=== PATIENT | female | born 1940 ===

== ENCOUNTER 2018-02-17 23:16 | Inpatient (IN) ==
[2018-02-18] MEDS ORDERED: ACETAMINOPHEN 325 MG TABLET PO PRN (02:24)
[2018-02-18] MEDS ORDERED: GLUCAGON 1 MG VIAL IM PRN (02:24)
[2018-02-18] MEDS ORDERED: ONDANSETRON 4 MG/2 ML VIAL IV PRN (02:24)
[2018-02-18] MEDS ORDERED: DEXTROSE 50% 25 GM/50 ML VIAL IV PRN (02:24)
[2018-02-18] MEDS ORDERED: cloNIDine 0.1 MG TABLET PO PRN (02:37)
[2018-02-18] MEDS ORDERED: cloNIDine 0.1 MG TABLET PO ONE (03:00)
[2018-02-18 03:10] LABS: Basophils % 0.5 % (0.0-0.8); Eosinophils % 0.2 % (0.00-10.9); Hematocrit 34.4 VOL% (35.7-47.0); Hemoglobin 11.4 GM/DL (12.0-16.0); Immature Granulocytes % 0.2 %; Immature Granulocytes Absolute 0.01 #; Lymphocytes # 1.5 10*3/uL (1.4-4.0); Lymphocytes % 34.9 % (21.3-54.2); Mean Corpuscular HGB Conc 33.1 GM/DL (32-36); Mean Corpuscular Hemoglobin 31 PG (27-34); Mean Corpuscular Volume 93.5 FL (87-102); Mean Platelet Volume 9.9 FL (9.6-12.0); Monocytes # 0.4 10*3/uL (0.11-0.8); Monocytes % 9.9 % (1.7-12.7); Neutrophils # 2.3 10*3/uL (1.4-7.4); Neutrophils % 54.3 % (38.7-73.9); Platelet Count 147 T/CUMM (130-400); Red Blood Count 3.68 MC/CUMM (3.8-5.5); Red Cell Distribution Width 13.9 % (9.3-17.3); White Blood Count 4.2 T/CUMM (4-12)
[2018-02-18 03:49] LABS: Albumin 3.8 G/DL (3.4-5.0); Bilirubin,Total 0.5 MG/DL (0.2-1.0); Calcium 8.7 MG/DL (8.5-10.1); Osmolality,Calculated 287.8 MOS/KG (273-304); Risk Ratio 2.72; Thyroid Stimulating Hormone 6.62 uIU/ml (0.358-3.74); Total Protein 7.5 G/DL (6.4-8.3)
[2018-02-18] MEDS: SODIUM CHLORIDE 0.9% 1,000 ML IV SCH ×2 (04:43→21:20)
[2018-02-18] MEDS: FLUTICASONE 50 MCG NASAL SPRAY 16 GM BOTTLE BOTH NARES SCH (09:15)
[2018-02-18] MEDS: DONEPEZIL 10 MG TABLET PO SCH ×2 (09:16→20:41)
[2018-02-18] MEDS: MEMANTINE 10 MG TABLET PO SCH ×2 (09:16→20:41)
[2018-02-18] MEDS: ASPIRIN EC 81 MG TABLET PO SCH (09:16)
[2018-02-18] MEDS: MULTIVITAMIN (CENTRUM) TABLET PO SCH (09:16)
[2018-02-18] MEDS: ENOXAPARIN 40 MG/0.4 ML SYRINGE SUBCUT SCH (09:17)
[2018-02-18] MEDS: INSULIN LISPRO 100 UNIT/ML SUBCUT SCH ×4 (09:17→20:59)
[2018-02-18] MEDS ORDERED: QUEtiapine 25 MG TABLET PO SCH (21:00)
[2018-02-19 05:19] LABS: Calcium 8.3 MG/DL (8.5-10.1); Osmolality,Calculated 291.6 MOS/KG (273-304)
[2018-02-19] MEDS: SODIUM CHLORIDE 0.9% 1,000 ML IV SCH ×2 (08:24→10:31)
[2018-02-19] MEDS: INSULIN LISPRO 100 UNIT/ML SUBCUT SCH ×2 (08:32→11:41)
[2018-02-19] MEDS: DONEPEZIL 10 MG TABLET PO SCH (09:03)
[2018-02-19] MEDS: MULTIVITAMIN (CENTRUM) TABLET PO SCH (09:03)
[2018-02-19] MEDS: MEMANTINE 10 MG TABLET PO SCH (09:03)
[2018-02-19] MEDS: FLUTICASONE 50 MCG NASAL SPRAY 16 GM BOTTLE BOTH NARES SCH (09:03)
[2018-02-19] MEDS: ASPIRIN EC 81 MG TABLET PO SCH (09:03)
[2018-02-19] MEDS: ENOXAPARIN 40 MG/0.4 ML SYRINGE SUBCUT SCH (09:04)
[2018-02-19 12:04] VITALS: BP 158/73
== END 2018-02-19 14:14 | disposition home or self-care (01) | DRG 57 ==
LOC: N.TELEN → SUATTDRO 02-18 00:41
PROVIDERS: ADMIT Internal Medicine

== ENCOUNTER 2018-11-04 12:08 | Inpatient (IN) ==
[2018-11-04] MEDS ORDERED: diphenhydrAMINE CAP 25 MG CAPSULE PO PRN (14:07)
[2018-11-04] MEDS ORDERED: traZODone 50 MG TABLET PO PRN (14:07)
[2018-11-04] MEDS ORDERED: BISACODYL 5 MG TABLET PO PRN (14:07)
[2018-11-04] MEDS ORDERED: guaiFENesin/DM ER 600-30 MG TABLET PO PRN (14:07)
[2018-11-04] MEDS ORDERED: ACETAMINOPHEN 325 MG TABLET PO PRN (14:07)
[2018-11-04] MEDS ORDERED: ONDANSETRON 4 MG/2 ML VIAL IV PRN (14:07)
[2018-11-04] MEDS ORDERED: MORPHINE 4 MG/1 ML VIAL IV PRN (14:07)
[2018-11-04] MEDS ORDERED: DOCUSATE SODIUM 100 MG CAPSULE PO PRN (14:07)
[2018-11-04] MEDS ORDERED: LACTULOSE 20 GM/30 ML UDCUP PO PRN (14:07)
[2018-11-04 15:02] LABS: Basophils # 0.1 10*3/uL (0.0-0.2); Basophils % 0.2 % (0.0-0.8); Hemoglobin 11.3 GM/DL (12.0-16.0); Immature Granulocytes % 1.5 %; Immature Granulocytes Absolute 0.31 #; Lymphocytes # 0.3 10*3/uL (1.4-4.0); Lymphocytes % 1.3 % (21.3-54.2); Mean Corpuscular HGB Conc 30.5 GM/DL (32-36); Mean Corpuscular Hemoglobin 29 PG (27-34); Mean Corpuscular Volume 95.9 FL (87-102); Mean Platelet Volume 10.4 FL (9.6-12.0); Monocytes # 0.6 10*3/uL (0.11-0.8); Monocytes % 3.1 % (1.7-12.7); Neutrophils # 18.9 10*3/uL (1.4-7.4); Neutrophils % 93.9 % (38.7-73.9); Platelet Count 376 T/CUMM (130-400); Red Blood Count 3.86 MC/CUMM (3.8-5.5); Red Cell Distribution Width 13.4 % (9.3-17.3); White Blood Count 20.1 T/CUMM (4-12)
[2018-11-04 15:22] LABS: Bilirubin,Total 0.6 MG/DL (0.2-1.0); Calcium 8.8 MG/DL (8.5-10.1); Osmolality,Calculated 300.1 MOS/KG (273-304); Total Protein 8.2 G/DL (6.4-8.3)
[2018-11-04 15:33] LABS: Band Neutrophils 9 % (0-10); Lymphocytes 3 % (20-55); Platelet Estimate Normal; Segmented Neutrophils 85 % (50-85); Total Cells Counted 100
[2018-11-04] MEDS ORDERED: INFLUENZA VIRUS VACCINE 0.5 ML SYRINGE IM ONE (16:42)
[2018-11-04] MEDS: PIPERACILLIN/TAZOBACTAM 3,375 MG in SODIUM CHLORIDE 0.9% 100 ML IV SCH (17:03)
[2018-11-04] MEDS: SODIUM CHLORIDE 0.9% 1,000 ML IV SCH (17:03)
[2018-11-04] MEDS: DONEPEZIL 10 MG TABLET PO SCH (20:59)
[2018-11-04] MEDS: MEMANTINE 10 MG TABLET PO SCH (20:59)
[2018-11-04] MEDS ORDERED: CETIRIZINE 10 MG TABLET PO SCH (21:00)
[2018-11-05] MEDS: PIPERACILLIN/TAZOBACTAM 3,375 MG in SODIUM CHLORIDE 0.9% 100 ML IV SCH ×2 (04:48→22:41)
[2018-11-05 06:07] LABS: Basophils # 0.1 10*3/uL (0.0-0.2); Basophils % 0.6 % (0.0-0.8); Hematocrit 33.7 VOL% (35.7-47.0); Hemoglobin 9.9 GM/DL (12.0-16.0); Immature Granulocytes % 0.7 %; Immature Granulocytes Absolute 0.17 #; Lymphocytes # 0.3 10*3/uL (1.4-4.0); Lymphocytes % 1.3 % (21.3-54.2); Mean Corpuscular HGB Conc 29.4 GM/DL (32-36); Mean Corpuscular Hemoglobin 29 PG (27-34); Mean Corpuscular Volume 97.1 FL (87-102); Mean Platelet Volume 11.2 FL (9.6-12.0); Monocytes # 0.5 10*3/uL (0.11-0.8); Monocytes % 1.9 % (1.7-12.7); Neutrophils # 22.2 10*3/uL (1.4-7.4); Neutrophils % 95.5 % (38.7-73.9); Platelet Count 252 T/CUMM (130-400); Red Blood Count 3.47 MC/CUMM (3.8-5.5); Red Cell Distribution Width 13.7 % (9.3-17.3); White Blood Count 23.2 T/CUMM (4-12)
[2018-11-05 06:38] LABS: Calcium 8.7 MG/DL (8.5-10.1); Osmolality,Calculated 295.4 MOS/KG (273-304); Potassium 5.3 MMOL/L (3.5-5.1)
[2018-11-05 06:40] LABS: Anisocytosis Slight; Band Neutrophils 21 % (0-10); Lymphocytes 3 % (20-55); Macrocytosis Slight; Metamyelocytes 5 %; Myelocytes 1 %; Platelet Estimate Normal; Polychromasia 1+; Segmented Neutrophils 68 % (50-85); Total Cells Counted 100
[2018-11-05] MEDS ORDERED: MEGESTROL 40 MG TABLET PO SCH (08:00)
[2018-11-05] MEDS ORDERED: ASPIRIN EC 81 MG TABLET PO SCH (09:00)
[2018-11-05] MEDS ORDERED: DEXTROSE 50% 25 GM/50 ML VIAL IV PRN ×2 (13:25→20:24)
[2018-11-05] MEDS ORDERED: VECURONIUM 10 MG VIAL IV ONE (17:47)
[2018-11-05] MEDS ORDERED: ETOMIDATE 20 MG/10 ML VIAL IV ONE (17:47)
[2018-11-05] MEDS ORDERED: NOREPINEPHRINE 8 MG in SODIUM CHLORIDE 0.9% 242 ML IV PRN (18:00)
[2018-11-05] MEDS ORDERED: PROPOFOL 1,000 MG/100 ML BOTTLE IV ONE (18:11)
[2018-11-05] MEDS: PROPOFOL 1,000 MG/100 ML BOTTLE IV SCH (18:20)
[2018-11-05 18:43] LABS: ABG Base Excess -21.6 MMOL/L (-2.5-2.5); ABG HCO3 8.9 MMOL/L (20-26); ABG Oxygen Saturation 98.6 % (95-100); ABG PCO2 26.4 MM HG (35-48); ABG TCO2 7.4 MMOL/L (23-27); Allen Test Positive; Pt O2 Delivery Device Ventilator
[2018-11-05 18:45] LABS: ABG PH 7.069 (7.35-7.45)
[2018-11-05] MEDS ORDERED: PHENYLEPHRINE DRIP 40 MG/250 ML PREMIX IV ONE (20:13)
[2018-11-05 20:15] LABS: Calcium 8.7 MG/DL (8.5-10.1); Osmolality,Calculated 299.4 MOS/KG (273-304)
[2018-11-05 20:17] LABS: Potassium 7.9 MMOL/L (3.5-5.1)
[2018-11-05] MEDS ORDERED: SODIUM BICARBONATE 50 MEQ/50 ML SYRINGE IV ONE ×4 (20:17→21:50)
[2018-11-05] MEDS ORDERED: ALBUTEROL NEB SOLN 5 MG/ML 20 ML/BOTTLE CONT NEB ONE (20:18)
[2018-11-05] MEDS ORDERED: INSULIN REGULAR 100 UNIT/ML IV ONE (20:18)
[2018-11-05] MEDS ORDERED: DEXTROSE 50% 25 GM/50 ML SYRINGE IV ONE ×3 (20:22→20:33)
[2018-11-05] MEDS ORDERED: SODIUM POLYSTYRENE SULFATE 15 GM/60 ML BOTTLE PO ONE (20:24)
[2018-11-05] MEDS ORDERED: SODIUM CHLORIDE 0.9% 2,000 ML IV ONE (20:25)
[2018-11-05] MEDS ORDERED: PHENYLEPHRINE DRIP 40 MG/250 ML PREMIX IV PRN (20:28)
[2018-11-05] MEDS ORDERED: SODIUM BICARB INJ 100 MEQ in SODIUM CHLORIDE 0.45% 1,000 ML IV SCH (20:30)
[2018-11-05] MEDS: DEXTROSE 50% 25 GM/50 ML SYRINGE IV PRN ×2 (20:30→20:35)
[2018-11-05] MEDS ORDERED: VANCOMYCIN INJ 1,000 MG in SODIUM CHLORIDE 0.9% 250 ML IV ONE (20:31)
[2018-11-05 20:37] LABS: Basophils # 0.1 10*3/uL (0.0-0.2); Basophils % 0.6 % (0.0-0.8); Mean Corpuscular Volume 103.1 FL (87-102)
[2018-11-05 20:44] LABS: Hematocrit 26.3 VOL% (35.7-47.0); Immature Granulocytes % 1.3 %; Immature Granulocytes Absolute 0.27 #; Lymphocytes # 0.4 10*3/uL (1.4-4.0); Mean Corpuscular HGB Conc 28.5 GM/DL (32-36); Mean Corpuscular Hemoglobin 29 PG (27-34); Mean Platelet Volume 11.8 FL (9.6-12.0); Monocytes # 0.2 10*3/uL (0.11-0.8); Monocytes % 0.9 % (1.7-12.7); Neutrophils # 19.5 10*3/uL (1.4-7.4); Neutrophils % 95.2 % (38.7-73.9); Red Cell Distribution Width 13.9 % (9.3-17.3); White Blood Count 20.5 T/CUMM (4-12)
[2018-11-05 20:46] LABS: Hemoglobin 7.5 GM/DL (12.0-16.0); Red Blood Count 2.55 MC/CUMM (3.8-5.5)
[2018-11-05 20:47] LABS: Platelet Count 159 T/CUMM (130-400)
[2018-11-05 20:53] LABS: ABG Base Excess -16.6 MMOL/L (-2.5-2.5); ABG HCO3 11.7 MMOL/L (20-26); Allen Test Positive; Pt O2 Delivery Device Ventilator
[2018-11-05 20:56] LABS: ABG PH 7.193 (7.35-7.45)
[2018-11-05] MEDS ORDERED: CEFEPIME 2,000 MG in SYRINGE 1 EACH IV ONE ×2 (21:00→23:30)
[2018-11-05 21:04] LABS: Osmolality,Calculated 307.7 MOS/KG (273-304)
[2018-11-05 21:05] LABS: Potassium 7.1 MMOL/L (3.5-5.1)
[2018-11-05 21:19] LABS: Anisocytosis Slight; Band Neutrophils 18 % (0-10); Lymphocytes 2 % (20-55); Macrocytosis 1+; Metamyelocytes 1 %; Segmented Neutrophils 78 % (50-85); Total Cells Counted 100
[2018-11-05 21:20] LABS: Platelet Estimate Adequate
[2018-11-05] MEDS ORDERED: CALCIUM GLUCONATE 1,000 MG in SODIUM CHLORIDE 0.9% 100 ML IV ONE (21:52)
[2018-11-05] MEDS: SODIUM CHLORIDE 0.9% 1,000 ML IV SCH (22:03)
[2018-11-05] MEDS: DONEPEZIL 10 MG TABLET PO SCH (22:04)
[2018-11-05] MEDS: MEMANTINE 10 MG TABLET PO SCH (22:04)
[2018-11-05] MEDS ORDERED: DILTIAZEM 50 MG/10 ML VIAL IV ONE (22:09)
[2018-11-05] MEDS ORDERED: DILTIAZEM 25 MG/5 ML VIAL IV ONE (22:15)
[2018-11-05] MEDS: CLINDAMYCIN INJ 600 MG in PREMIX 1 EACH IV SCH (22:41)
[2018-11-05] MEDS: dilTIAZem Drip 125 MG/125 ML PREMIX IV SCH (22:53)
[2018-11-05 23:24] LABS: Amorphous Crystals,Urine Occasional /HPF (Few); Apearance,Urine CLOUDY (Clear); Bacteria,Urine Moderate /HPF (Few); Bilirubin,Urine Negative (Negative); Blood, Urine Moderate mg/dL (Negative); Glucose,Urine (UA) 50 mg/dL (Negative); Ketones,Urine Negative (Negative); Mucus,Urine Occasional /LPF (Occasional); Nitrite,Urine Negative (Negative); Protein,Urine 30 MG/DL; RBC,Urine 2 /HPF (0-4); Squamous Epithelial Cell,Urine Occasional /HPF (0-10); Urine Color Amber (Yellow); Urine Specific Gravity 1.012 (1.001-1.035); WBC,Urine 1 /HPF (0-6)
[2018-11-06 00:07] LABS: ABG Base Excess -14.9 MMOL/L (-2.5-2.5); ABG Oxygen Saturation 98.1 % (95-100); ABG PCO2 31.6 MM HG (35-48); ABG PO2 146.9 MM HG (80-95); ABG TCO2 12.9 MMOL/L (23-27)
[2018-11-06 00:08] LABS: ABG PH 7.196 (7.35-7.45)
[2018-11-06 00:13] LABS: Basophils # 0.2 10*3/uL (0.0-0.2); Basophils % 0.7 % (0.0-0.8); Hematocrit 27.5 VOL% (35.7-47.0); Hemoglobin 8.1 GM/DL (12.0-16.0); Immature Granulocytes % 0.9 %; Immature Granulocytes Absolute 0.22 #; Lymphocytes # 0.5 10*3/uL (1.4-4.0); Mean Corpuscular HGB Conc 29.5 GM/DL (32-36); Mean Corpuscular Hemoglobin 30 PG (27-34); Mean Corpuscular Volume 102.6 FL (87-102); Mean Platelet Volume 11.8 FL (9.6-12.0); Monocytes # 0.5 10*3/uL (0.11-0.8); Neutrophils # 23.1 10*3/uL (1.4-7.4); Neutrophils % 94.4 % (38.7-73.9); Platelet Count 146 T/CUMM (130-400); Red Blood Count 2.68 MC/CUMM (3.8-5.5); Red Cell Distribution Width 14.2 % (9.3-17.3); White Blood Count 24.4 T/CUMM (4-12)
[2018-11-06] MEDS ORDERED: FUROSEMIDE 20 MG/2 ML VIAL IV ONE (00:14)
[2018-11-06] MEDS ORDERED: ALBUMIN 25% 25 GM in PREMIX 1 EACH IV ONE (00:14)
[2018-11-06] MEDS ORDERED: SODIUM BICARBONATE 50 MEQ/50 ML SYRINGE IV ONE (00:15)
[2018-11-06] MEDS: SODIUM BICARB INJ 150 MEQ in DEXTROSE 5% 1,000 ML IV SCH ×4 (00:15→13:30)
[2018-11-06] MEDS: SODIUM CHLORIDE 0.9% 1,000 ML IV SCH (00:17)
[2018-11-06 00:35] LABS: Calcium 7.9 MG/DL (8.5-10.1); Osmolality,Calculated 312.6 MOS/KG (273-304); Potassium 5.2 MMOL/L (3.5-5.1)
[2018-11-06 00:48] LABS: CKMB % 3.8 %; Troponin I 0.015 NG/ML (0.00-0.045)
[2018-11-06 01:44] LABS: Band Neutrophils 4 % (0-10); Lymphocytes 5 % (20-55); Nucleated Red Blood Cells 1 (0-5); Platelet Estimate Adequate; Segmented Neutrophils 88 % (50-85); Total Cells Counted 100
[2018-11-06 01:45] LABS: Polychromasia Slight
[2018-11-06] MEDS ORDERED: SODIUM POLYSTYRENE SULFATE 15 GM/60 ML BOTTLE PO ONE (02:00)
[2018-11-06] MEDS: DEXAMETHASONE 4 MG/1 ML VIAL IV SCH ×3 (04:06→13:30)
[2018-11-06 04:15] LABS: ABG Base Excess -7.4 MMOL/L (-2.5-2.5); ABG HCO3 18.4 MMOL/L (20-26); ABG Oxygen Saturation 98.2 % (95-100); ABG PCO2 34.6 MM HG (35-48); ABG PH 7.324 (7.35-7.45); Allen Test Positive; Pt O2 Delivery Device Ventilator
[2018-11-06 05:15] LABS: Albumin 1.7 G/DL (3.4-5.0); Bilirubin,Total 1.6 MG/DL (0.2-1.0); Calcium 7.8 MG/DL (8.5-10.1); Osmolality,Calculated 315.6 MOS/KG (273-304); Potassium 4.6 MMOL/L (3.5-5.1); Total Protein 5.2 G/DL (6.4-8.3)
[2018-11-06 05:18] LABS: Basophils % 0.1 % (0.0-0.8); Hematocrit 26.4 VOL% (35.7-47.0); Hemoglobin 7.9 GM/DL (12.0-16.0); Immature Granulocytes % 0.7 %; Immature Granulocytes Absolute 0.11 #; Lymphocytes # 0.4 10*3/uL (1.4-4.0); Lymphocytes % 2.3 % (21.3-54.2); Mean Corpuscular HGB Conc 29.9 GM/DL (32-36); Mean Corpuscular Hemoglobin 30 PG (27-34); Mean Corpuscular Volume 98.9 FL (87-102); Mean Platelet Volume 12.1 FL (9.6-12.0); Monocytes # 0.2 10*3/uL (0.11-0.8); Monocytes % 1.5 % (1.7-12.7); Neutrophils # 14.4 10*3/uL (1.4-7.4); Neutrophils % 95.4 % (38.7-73.9); Red Blood Count 2.67 MC/CUMM (3.8-5.5)
[2018-11-06 05:20] LABS: Platelet Count 103 T/CUMM (130-400); White Blood Count 15.1 T/CUMM (4-12)
[2018-11-06 05:59] LABS: Band Neutrophils 2 % (0-10); Lymphocytes 5 % (20-55); Metamyelocytes 1 %; Platelet Estimate Decreased; Segmented Neutrophils 84 % (50-85); Total Cells Counted 100
[2018-11-06 06:00] LABS: Polychromasia Few
[2018-11-06] MEDS: CLINDAMYCIN INJ 600 MG in PREMIX 1 EACH IV SCH ×3 (07:23→21:15)
[2018-11-06] MEDS: PIPERACILLIN/TAZOBACTAM 3,375 MG in SODIUM CHLORIDE 0.9% 100 ML IV SCH ×2 (10:00→21:15)
[2018-11-06] MEDS: INSULIN REGULAR 100 UNIT/ML SUBCUT SCH ×2 (12:15→18:35)
[2018-11-06] MEDS: INSULIN NPH 100 UNIT/ML SUBCUT SCH ×2 (12:15→21:15)
[2018-11-06 16:13] LABS: Calcium 7.3 MG/DL (8.5-10.1); Osmolality,Calculated 317.3 MOS/KG (273-304); Potassium 4.1 MMOL/L (3.5-5.1)
[2018-11-06] MEDS: SODIUM CHLORIDE 23.4% CONC INJ 38.5 MEQ, SODIUM BICARB INJ 100 MEQ in STERILE WATER INJ... IV SCH (17:30)
[2018-11-06] MEDS: PROPOFOL 1,000 MG/100 ML BOTTLE IV SCH (21:34)
[2018-11-07] MEDS: dilTIAZem Drip 125 MG/125 ML PREMIX IV SCH ×2 (00:20→21:57)
[2018-11-07] MEDS: INSULIN REGULAR 100 UNIT/ML SUBCUT SCH ×4 (00:20→18:35)
[2018-11-07] MEDS: SODIUM CHLORIDE 23.4% CONC INJ 38.5 MEQ, SODIUM BICARB INJ 100 MEQ in STERILE WATER INJ... IV SCH (01:10)
[2018-11-07 02:54] LABS: ABG Base Excess 18.3 MMOL/L (-2.5-2.5); ABG HCO3 42.5 MMOL/L (20-26); ABG Oxygen Saturation 98.2 % (95-100); ABG PCO2 38.2 MM HG (35-48); ABG PO2 95.4 MM HG (80-95); ABG TCO2 38.5 MMOL/L (23-27); Allen Test Positive; Pt O2 Delivery Device Ventilator
[2018-11-07 02:55] LABS: ABG PH 7.644 (7.35-7.45)
[2018-11-07 04:22] LABS: Basophils # 0.1 10*3/uL (0.0-0.2); Basophils % 0.5 % (0.0-0.8); Hemoglobin 8.2 GM/DL (12.0-16.0); Immature Granulocytes % 0.6 %; Immature Granulocytes Absolute 0.12 #; Lymphocytes # 0.5 10*3/uL (1.4-4.0); Lymphocytes % 2.6 % (21.3-54.2); Mean Corpuscular HGB Conc 32.8 GM/DL (32-36); Mean Corpuscular Hemoglobin 29 PG (27-34); Mean Platelet Volume 12.3 FL (9.6-12.0); Monocytes # 0.4 10*3/uL (0.11-0.8); Monocytes % 1.9 % (1.7-12.7); Neutrophils # 18.1 10*3/uL (1.4-7.4); Neutrophils % 94.4 % (38.7-73.9); Red Blood Count 2.81 MC/CUMM (3.8-5.5); Red Cell Distribution Width 13.4 % (9.3-17.3); White Blood Count 19.2 T/CUMM (4-12)
[2018-11-07 04:29] LABS: Platelet Count 84 T/CUMM (130-400)
[2018-11-07 05:06] LABS: Albumin 1.6 G/DL (3.4-5.0); Bilirubin,Total 2.3 MG/DL (0.2-1.0); Calcium 7.2 MG/DL (8.5-10.1); Free T4 (Free Thyroxine) 1.47 NG/DL (0.76-1.46); Potassium 4.2 MMOL/L (3.5-5.1); Thyroid Stimulating Hormone 0.639 uIU/ml (0.358-3.74); Total Protein 5.7 G/DL (6.4-8.3)
[2018-11-07 05:07] LABS: Uric Acid 10.8 MG/DL (2.6-6.0)
[2018-11-07 05:11] LABS: Band Neutrophils 2 % (0-10); Lymphocytes 4 % (20-55); Nucleated Red Blood Cells 1 (0-5); Segmented Neutrophils 90 % (50-85); Total Cells Counted 100
[2018-11-07 05:12] LABS: Hypochromasia 1+; Microcytosis Slight; Target Cells Slight
[2018-11-07 05:13] LABS: Ovalocytes Slight; Platelet Estimate Decreased
[2018-11-07] MEDS: DEXTROSE 50% 25 GM/50 ML SYRINGE IV PRN (05:13)
[2018-11-07] MEDS: CLINDAMYCIN INJ 600 MG in PREMIX 1 EACH IV SCH ×3 (05:55→21:55)
[2018-11-07] MEDS: DEXTROSE 5% NACL 0.45% 1,000 ML IV SCH ×3 (07:05→23:21)
[2018-11-07 08:43] LABS: ABG Base Excess 14.7 MMOL/L (-2.5-2.5); ABG HCO3 38.6 MMOL/L (20-26); ABG Oxygen Saturation 98.9 % (95-100); ABG PCO2 42.6 MM HG (35-48); ABG PH 7.565 (7.35-7.45); ABG TCO2 35.8 MMOL/L (23-27); Pt O2 Delivery Device Ventilator
[2018-11-07] MEDS: PIPERACILLIN/TAZOBACTAM 3,375 MG in SODIUM CHLORIDE 0.9% 100 ML IV SCH ×2 (10:00→21:56)
[2018-11-07] MEDS: MORPHINE 4 MG/1 ML VIAL IV PRN (12:15)
[2018-11-07] MEDS: PROPOFOL 1,000 MG/100 ML BOTTLE IV SCH (18:37)
[2018-11-07] MEDS ORDERED: PERMETHRIN 5% CREAM 60 GM TUBE TOP ONE (21:37)
[2018-11-07] MEDS: ASCORBIC ACID 500 MG TABLET PO SCH (21:51)
[2018-11-07] MEDS ORDERED: PERMETHRIN 1% LOTION 59 ML BOTTLE TOP ONE (23:00)
[2018-11-08] MEDS: INSULIN REGULAR 100 UNIT/ML SUBCUT SCH ×4 (00:11→17:55)
[2018-11-08 03:07] LABS: ABG HCO3 35.7 MMOL/L (20-26); ABG Oxygen Saturation 98.7 % (95-100); ABG PCO2 43.9 MM HG (35-48); ABG PH 7.523 (7.35-7.45); ABG TCO2 33.5 MMOL/L (23-27); Allen Test Positive; Pt O2 Delivery Device Ventilator
[2018-11-08 03:11] LABS: Basophils # 0.1 10*3/uL (0.0-0.2); Basophils % 0.3 % (0.0-0.8); Hematocrit 26.8 VOL% (35.7-47.0); Hemoglobin 8.3 GM/DL (12.0-16.0); Immature Granulocytes % 1.4 %; Immature Granulocytes Absolute 0.29 #; Lymphocytes # 0.8 10*3/uL (1.4-4.0); Lymphocytes % 3.8 % (21.3-54.2); Mean Corpuscular Hemoglobin 29 PG (27-34); Mean Corpuscular Volume 92.4 FL (87-102); Monocytes # 0.5 10*3/uL (0.11-0.8); Monocytes % 2.3 % (1.7-12.7); NRBC # 0.03 10*3/uL; Neutrophils # 19.7 10*3/uL (1.4-7.4); Neutrophils % 92.2 % (38.7-73.9); Red Cell Distribution Width 14.3 % (9.3-17.3); White Blood Count 21.4 T/CUMM (4-12)
[2018-11-08 03:14] LABS: Platelet Count 70 T/CUMM (130-400)
[2018-11-08 03:44] LABS: Albumin 1.6 G/DL (3.4-5.0); Bilirubin,Total 1.5 MG/DL (0.2-1.0); Calcium 6.5 MG/DL (8.5-10.1); Osmolality,Calculated 304.5 MOS/KG (273-304); Potassium 3.6 MMOL/L (3.5-5.1); Total Protein 6.1 G/DL (6.4-8.3)
[2018-11-08 04:47] LABS: Hypochromasia 1+; Lymphocytes 7 % (20-55); Ovalocytes Slight; Platelet Estimate Decreased; Segmented Neutrophils 89 % (50-85); Total Cells Counted 100
[2018-11-08 04:48] LABS: Microcytosis Slight
[2018-11-08] MEDS: CLINDAMYCIN INJ 600 MG in PREMIX 1 EACH IV SCH ×3 (06:19→22:55)
[2018-11-08] MEDS: DEXTROSE 5% NACL 0.45% 1,000 ML IV SCH ×3 (06:46→22:55)
[2018-11-08] MEDS: PIPERACILLIN/TAZOBACTAM 3,375 MG in SODIUM CHLORIDE 0.9% 100 ML IV SCH ×2 (09:36→22:55)
[2018-11-08] MEDS: ASCORBIC ACID 500 MG TABLET PO SCH ×2 (09:36→22:55)
[2018-11-08] MEDS: PROPOFOL 1,000 MG/100 ML BOTTLE IV SCH (21:33)
[2018-11-08] MEDS: dilTIAZem Drip 125 MG/125 ML PREMIX IV SCH (23:01)
[2018-11-09] MEDS: INSULIN REGULAR 100 UNIT/ML SUBCUT SCH ×4 (00:05→18:26)
[2018-11-09] MEDS: MORPHINE 4 MG/1 ML VIAL IV PRN (02:13)
[2018-11-09 04:24] LABS: Allen Test Positive; Pt O2 Delivery Device Ventilator
[2018-11-09 04:30] LABS: ABG Base Excess 5.5 MMOL/L (-2.5-2.5); ABG HCO3 29.4 MMOL/L (20-26); ABG PCO2 40.5 MM HG (35-48); ABG PH 7.471 (7.35-7.45); ABG TCO2 27.5 MMOL/L (23-27)
[2018-11-09] MEDS: CLINDAMYCIN INJ 600 MG in PREMIX 1 EACH IV SCH ×3 (06:00→21:30)
[2018-11-09 06:27] LABS: Basophils % 0.1 % (0.0-0.8); Eosinophils % 0.1 % (0.00-10.9); Hematocrit 24.1 VOL% (35.7-47.0); Hemoglobin 7.6 GM/DL (12.0-16.0); Immature Granulocytes % 2.8 %; Immature Granulocytes Absolute 0.44 #; Lymphocytes # 0.9 10*3/uL (1.4-4.0); Lymphocytes % 5.8 % (21.3-54.2); Mean Corpuscular HGB Conc 31.5 GM/DL (32-36); Mean Corpuscular Hemoglobin 29 PG (27-34); Mean Corpuscular Volume 91.6 FL (87-102); Mean Platelet Volume 13.8 FL (9.6-12.0); Monocytes # 0.3 10*3/uL (0.11-0.8); Monocytes % 1.9 % (1.7-12.7); NRBC # 0.04 10*3/uL; Neutrophils % 89.3 % (38.7-73.9); Red Blood Count 2.63 MC/CUMM (3.8-5.5); Red Cell Distribution Width 14.5 % (9.3-17.3); White Blood Count 15.6 T/CUMM (4-12)
[2018-11-09 06:30] LABS: Platelet Count 53 T/CUMM (130-400)
[2018-11-09] MEDS: DEXTROSE 5% NACL 0.45% 1,000 ML IV SCH ×3 (06:30→22:10)
[2018-11-09 06:46] LABS: Hypochromasia 1+; Lymphocytes 2 % (20-55); Metamyelocytes 1 %; Myelocytes 1 %; Nucleated Red Blood Cells 1 (0-5); Segmented Neutrophils 94 % (50-85); Total Cells Counted 100
[2018-11-09 06:47] LABS: Microcytosis 1+; Ovalocytes Slight
[2018-11-09 06:48] LABS: Platelet Estimate Decreased
[2018-11-09 06:53] LABS: Albumin 1.4 G/DL (3.4-5.0); Bilirubin,Total 1.5 MG/DL (0.2-1.0); Calcium 6.5 MG/DL (8.5-10.1); Osmolality,Calculated 296.5 MOS/KG (273-304); Total Protein 5.8 G/DL (6.4-8.3)
[2018-11-09 06:59] LABS: Potassium 2.2 MMOL/L (3.5-5.1)
[2018-11-09] MEDS: POTASSIUM CHLORIDE RIDER 10 MEQ in PREMIX 1 EACH IV PRN ×6 (07:25→13:46)
[2018-11-09] MEDS: ASCORBIC ACID 500 MG TABLET PO SCH ×2 (10:00→21:28)
[2018-11-09] MEDS: PIPERACILLIN/TAZOBACTAM 3,375 MG in SODIUM CHLORIDE 0.9% 100 ML IV SCH ×2 (10:01→21:32)
[2018-11-09] MEDS ORDERED: CALCIUM GLUCONATE 2,000 MG in SODIUM CHLORIDE 0.9% 100 ML IV ONE (13:30)
[2018-11-09] MEDS: hydrALAZINE 25 MG TABLET PO SCH ×2 (17:58→21:28)
[2018-11-09] MEDS: PROPOFOL 1,000 MG/100 ML BOTTLE IV SCH (18:26)
[2018-11-09] MEDS ORDERED: POTASSIUM CHLORIDE INJ 50 MEQ in SODIUM CHLORIDE 0.9% 475 ML IV SCH (21:30)
[2018-11-09] MEDS: dilTIAZem Drip 125 MG/125 ML PREMIX IV SCH (21:36)
[2018-11-10] MEDS: INSULIN REGULAR 100 UNIT/ML SUBCUT SCH ×4 (00:58→18:10)
[2018-11-10 04:27] LABS: ABG Base Excess 0.9 MMOL/L (-2.5-2.5); ABG HCO3 24.2 MMOL/L (20-26); ABG Oxygen Saturation 98.6 % (95-100); ABG PCO2 33.9 MM HG (35-48); ABG PH 7.471 (7.35-7.45); ABG PO2 153.2 MM HG (80-95); ABG TCO2 25.2 MMOL/L (23-27); Allen Test Positive; Pt O2 Delivery Device Ventilator
[2018-11-10] MEDS: CLINDAMYCIN INJ 600 MG in PREMIX 1 EACH IV SCH (06:02)
[2018-11-10] MEDS: DEXTROSE 5% NACL 0.45% 1,000 ML IV SCH (06:03)
[2018-11-10] MEDS: hydrALAZINE 25 MG TABLET PO SCH ×4 (09:16→21:29)
[2018-11-10] MEDS: ASCORBIC ACID 500 MG TABLET PO SCH ×2 (09:16→21:29)
[2018-11-10] MEDS: PIPERACILLIN/TAZOBACTAM 3,375 MG in SODIUM CHLORIDE 0.9% 100 ML IV SCH ×2 (10:26→21:48)
[2018-11-10] MEDS ORDERED: POLYETHYLENE GLYCOL POWDER 17 GM PACK PO ONE (10:30)
[2018-11-10] MEDS ORDERED: DEXTROSE 50% 25 GM/50 ML SYRINGE IV PRN (10:37)
[2018-11-10] MEDS ORDERED: GLUCAGON 1 MG VIAL IM PRN (10:37)
[2018-11-10 10:59] LABS: Basophils % 0.1 % (0.0-0.8); Hematocrit 21.8 VOL% (35.7-47.0); Hemoglobin 7.1 GM/DL (12.0-16.0); Immature Granulocytes Absolute 0.61 #; Lymphocytes # 0.7 10*3/uL (1.4-4.0); Lymphocytes % 3.3 % (21.3-54.2); Mean Corpuscular HGB Conc 32.6 GM/DL (32-36); Mean Corpuscular Hemoglobin 30 PG (27-34); Mean Corpuscular Volume 90.5 FL (87-102); Mean Platelet Volume 14.3 FL (9.6-12.0); Monocytes # 0.4 10*3/uL (0.11-0.8); Monocytes % 1.9 % (1.7-12.7); NRBC # 0.07 10*3/uL; Neutrophils # 18.5 10*3/uL (1.4-7.4); Neutrophils % 91.7 % (38.7-73.9); Red Blood Count 2.41 MC/CUMM (3.8-5.5); Red Cell Distribution Width 14.5 % (9.3-17.3); White Blood Count 20.2 T/CUMM (4-12)
[2018-11-10 11:06] LABS: Platelet Count 39 T/CUMM (130-400)
[2018-11-10 11:21] LABS: Calcium 7.3 MG/DL (8.5-10.1); Osmolality,Calculated 288.8 MOS/KG (273-304)
[2018-11-10 11:24] LABS: Potassium 2.4 MMOL/L (3.5-5.1)
[2018-11-10 11:40] LABS: Band Neutrophils 1 % (0-10); Lymphocytes 2 % (20-55); Segmented Neutrophils 94 % (50-85); Total Cells Counted 100
[2018-11-10 11:41] LABS: Hypochromasia 1+; Microcytosis 1+; Ovalocytes Slight; Platelet Estimate Decreased
[2018-11-10] MEDS: POTASSIUM CHLORIDE 20 MEQ/15 ML UDCUP PO SCH ×2 (12:03→15:58)
[2018-11-10] MEDS ORDERED: POTASSIUM CHLORIDE INJ 50 MEQ in SODIUM CHLORIDE 0.9% 500 ML IV ONE (12:30)
[2018-11-10] MEDS: DEXT 5% NACL 0.45% KCL 40 MEQ 40 MEQ/1,000 ML BAG IV SCH (12:58)
[2018-11-10 17:09] LABS: Calcium 7.5 MG/DL (8.5-10.1); Osmolality,Calculated 288.7 MOS/KG (273-304); Potassium 3.5 MMOL/L (3.5-5.1)
[2018-11-10] MEDS: POTASSIUM CHLORIDE RIDER 10 MEQ in PREMIX 1 EACH IV PRN ×2 (18:11→19:15)
[2018-11-11] MEDS: INSULIN REGULAR 100 UNIT/ML SUBCUT SCH ×4 (00:09→18:12)
[2018-11-11] MEDS: DEXT 5% NACL 0.45% KCL 40 MEQ 40 MEQ/1,000 ML BAG IV SCH ×3 (01:56→23:12)
[2018-11-11 04:04] LABS: Basophils % 0.2 % (0.0-0.8); Eosinophils % 0.1 % (0.00-10.9); Hematocrit 23.8 VOL% (35.7-47.0); Hemoglobin 7.4 GM/DL (12.0-16.0); Immature Granulocytes % 2.5 %; Immature Granulocytes Absolute 0.56 #; Lymphocytes # 0.5 10*3/uL (1.4-4.0); Lymphocytes % 2.3 % (21.3-54.2); Mean Corpuscular HGB Conc 31.1 GM/DL (32-36); Mean Corpuscular Hemoglobin 29 PG (27-34); Mean Corpuscular Volume 92.2 FL (87-102); Mean Platelet Volume 14.8 FL (9.6-12.0); Monocytes # 0.5 10*3/uL (0.11-0.8); Monocytes % 2.2 % (1.7-12.7); NRBC # 0.05 10*3/uL; Neutrophils # 20.7 10*3/uL (1.4-7.4); Neutrophils % 92.7 % (38.7-73.9); Platelet Count 48 T/CUMM (130-400); Red Blood Count 2.58 MC/CUMM (3.8-5.5); Red Cell Distribution Width 14.8 % (9.3-17.3); White Blood Count 22.3 T/CUMM (4-12)
[2018-11-11 04:31] LABS: Calcium 7.5 MG/DL (8.5-10.1); Osmolality,Calculated 290.4 MOS/KG (273-304); Potassium 4.1 MMOL/L (3.5-5.1)
[2018-11-11 04:36] LABS: Prealbumin 3.8 MG/DL (20-40)
[2018-11-11 04:37] LABS: Hypochromasia 1+; Lymphocytes 3 % (20-55); Microcytosis 1+; Ovalocytes Slight; Platelet Estimate Decreased; Segmented Neutrophils 93 % (50-85); Total Cells Counted 100
[2018-11-11] MEDS ORDERED: SODIUM CHLORIDE 0.9% 1,000 ML IV PRN (08:10)
[2018-11-11] MEDS: PIPERACILLIN/TAZOBACTAM 3,375 MG in SODIUM CHLORIDE 0.9% 100 ML IV SCH ×2 (09:37→21:29)
[2018-11-11] MEDS: ASCORBIC ACID 500 MG TABLET PO SCH ×2 (09:38→21:29)
[2018-11-11] MEDS: hydrALAZINE 25 MG TABLET PO SCH ×4 (09:38→21:29)
[2018-11-11] MEDS ORDERED: POLYETHYLENE GLYCOL POWDER 17 GM PACK PO SCH ×2 (12:00→14:30)
[2018-11-11] MEDS ORDERED: PERMETHRIN 1% LOTION 59 ML BOTTLE TOP ONE (16:22)
[2018-11-11] MEDS: MORPHINE 4 MG/1 ML VIAL IV PRN (20:36)
[2018-11-11 22:32] LABS: Hematocrit 30.8 VOL% (35.7-47.0); Hemoglobin 10.1 GM/DL (12.0-16.0)
[2018-11-11] MEDS ORDERED: FUROSEMIDE 20 MG/2 ML VIAL IV ONE (22:52)
[2018-11-11] MEDS ORDERED: ALBUTEROL/IPRATROPIUM 3 ML NEB RESP TX PRN (22:52)
[2018-11-12] MEDS: INSULIN REGULAR 100 UNIT/ML SUBCUT SCH ×4 (00:20→19:12)
[2018-11-12] MEDS: MORPHINE 4 MG/1 ML VIAL IV PRN ×2 (05:05→14:35)
[2018-11-12] MEDS: DEXT 5% NACL 0.45% KCL 40 MEQ 40 MEQ/1,000 ML BAG IV SCH ×3 (05:09→21:22)
[2018-11-12 05:59] LABS: Basophils % 0.2 % (0.0-0.8); Hematocrit 30.4 VOL% (35.7-47.0); Hemoglobin 10.1 GM/DL (12.0-16.0); Immature Granulocytes % 2.3 %; Immature Granulocytes Absolute 0.51 #; Lymphocytes # 0.5 10*3/uL (1.4-4.0); Lymphocytes % 2.2 % (21.3-54.2); Mean Corpuscular HGB Conc 33.2 GM/DL (32-36); Mean Corpuscular Hemoglobin 30 PG (27-34); Mean Corpuscular Volume 91.6 FL (87-102); Mean Platelet Volume 13.1 FL (9.6-12.0); Monocytes # 0.6 10*3/uL (0.11-0.8); Monocytes % 2.5 % (1.7-12.7); NRBC # 0.02 10*3/uL; Neutrophils # 20.4 10*3/uL (1.4-7.4); Neutrophils % 92.8 % (38.7-73.9); Red Blood Count 3.32 MC/CUMM (3.8-5.5)
[2018-11-12 06:01] LABS: Platelet Count 87 T/CUMM (130-400)
[2018-11-12 06:19] LABS: Lymphocytes 2 % (20-55); Platelet Estimate Decreased; Segmented Neutrophils 95 % (50-85); Total Cells Counted 100
[2018-11-12 06:20] LABS: Calcium 7.9 MG/DL (8.5-10.1); Hypochromasia 1+; Microcytosis 1+; Osmolality,Calculated 292.4 MOS/KG (273-304)
[2018-11-12] MEDS: POLYETHYLENE GLYCOL POWDER 17 GM PACK PO SCH (08:44)
[2018-11-12] MEDS: hydrALAZINE 25 MG TABLET PO SCH ×4 (08:44→20:27)
[2018-11-12] MEDS: ASCORBIC ACID 500 MG TABLET PO SCH ×2 (08:44→20:27)
[2018-11-12] MEDS: PIPERACILLIN/TAZOBACTAM 3,375 MG in SODIUM CHLORIDE 0.9% 100 ML IV SCH ×2 (09:58→21:26)
[2018-11-13] MEDS: INSULIN REGULAR 100 UNIT/ML SUBCUT SCH ×4 (01:59→17:57)
[2018-11-13 05:37] LABS: Basophils % 0.2 % (0.0-0.8); Eosinophils % 0.1 % (0.00-10.9); Hematocrit 31.8 VOL% (35.7-47.0); Hemoglobin 10.2 GM/DL (12.0-16.0); Immature Granulocytes % 1.7 %; Immature Granulocytes Absolute 0.39 #; Lymphocytes # 0.4 10*3/uL (1.4-4.0); Lymphocytes % 1.6 % (21.3-54.2); Mean Corpuscular HGB Conc 32.1 GM/DL (32-36); Mean Corpuscular Hemoglobin 30 PG (27-34); Mean Corpuscular Volume 92.7 FL (87-102); Mean Platelet Volume 13.3 FL (9.6-12.0); Monocytes # 0.6 10*3/uL (0.11-0.8); Monocytes % 2.7 % (1.7-12.7); Neutrophils # 21.1 10*3/uL (1.4-7.4); Neutrophils % 93.7 % (38.7-73.9); Platelet Count 64 T/CUMM (130-400); Red Blood Count 3.43 MC/CUMM (3.8-5.5); Red Cell Distribution Width 15.8 % (9.3-17.3); White Blood Count 22.5 T/CUMM (4-12)
[2018-11-13 06:08] LABS: Calcium 8.1 MG/DL (8.5-10.1); Osmolality,Calculated 288.4 MOS/KG (273-304); Potassium 4.7 MMOL/L (3.5-5.1)
[2018-11-13 06:24] LABS: Lymphocytes 3 % (20-55); Segmented Neutrophils 95 % (50-85); Total Cells Counted 100
[2018-11-13 06:25] LABS: Anisocytosis 1+; Platelet Estimate Decreased
[2018-11-13] MEDS: ASCORBIC ACID 500 MG TABLET PO SCH ×2 (09:49→20:05)
[2018-11-13] MEDS: POLYETHYLENE GLYCOL POWDER 17 GM PACK PO SCH (09:49)
[2018-11-13] MEDS: hydrALAZINE 25 MG TABLET PO SCH ×4 (09:49→20:05)
[2018-11-13] MEDS: PIPERACILLIN/TAZOBACTAM 3,375 MG in SODIUM CHLORIDE 0.9% 100 ML IV SCH ×2 (10:34→21:36)
[2018-11-13] MEDS: amLODIPine 2.5 MG TABLET PO SCH (15:00)
[2018-11-13] MEDS: DEXT 5% NACL 0.45% KCL 40 MEQ 40 MEQ/1,000 ML BAG IV SCH ×2 (17:57→17:59)
[2018-11-14] MEDS: INSULIN REGULAR 100 UNIT/ML SUBCUT SCH ×5 (01:18→23:23)
[2018-11-14] MEDS ORDERED: NOREPINEPHRINE 4 MG/4 ML VIAL IV ONE (03:29)
[2018-11-14] MEDS ORDERED: NOREPINEPHRINE 8 MG in SODIUM CHLORIDE 0.9% 242 ML IV PRN (03:30)
[2018-11-14] MEDS ORDERED: HEPARIN/NACL 0.9% 2 UNITS/ML 500 ML IV ONE (04:08)
[2018-11-14 04:16] LABS: ABG Base Excess -12.9 MMOL/L (-2.5-2.5); ABG HCO3 17.4 MMOL/L (20-26); ABG Oxygen Saturation 98.7 % (95-100); ABG PCO2 65.5 MM HG (35-48); ABG PO2 304.3 MM HG (80-95); ABG TCO2 19.4 MMOL/L (23-27); Pt O2 Delivery Device Ventilator
[2018-11-14 04:20] LABS: ABG PH 7.043 (7.35-7.45)
[2018-11-14 06:15] LABS: ABG HCO3 16.7 MMOL/L (20-26); ABG Oxygen Saturation 98.6 % (95-100); ABG PCO2 31.6 MM HG (35-48); ABG PH 7.342 (7.35-7.45); ABG PO2 205.9 MM HG (80-95); ABG TCO2 17.7 MMOL/L (23-27)
[2018-11-14 06:42] LABS: Basophils % 0.1 % (0.0-0.8); Hematocrit 28.7 VOL% (35.7-47.0); Hemoglobin 8.9 GM/DL (12.0-16.0); Immature Granulocytes % 1.8 %; Immature Granulocytes Absolute 0.44 #; Lymphocytes # 0.2 10*3/uL (1.4-4.0); Lymphocytes % 0.7 % (21.3-54.2); Mean Corpuscular Hemoglobin 30 PG (27-34); Mean Platelet Volume 12.4 FL (9.6-12.0); Monocytes # 0.4 10*3/uL (0.11-0.8); Monocytes % 1.8 % (1.7-12.7); NRBC # 0.02 10*3/uL; Neutrophils # 23.4 10*3/uL (1.4-7.4); Neutrophils % 95.6 % (38.7-73.9); Platelet Count 89 T/CUMM (130-400); Red Blood Count 2.93 MC/CUMM (3.8-5.5); Red Cell Distribution Width 16.3 % (9.3-17.3); White Blood Count 24.5 T/CUMM (4-12)
[2018-11-14] MEDS: AMPICILLIN/SULBACTAM 1,500 MG in SODIUM CHLORIDE 0.9% 100 ML IV SCH ×3 (06:46→18:38)
[2018-11-14 07:18] LABS: Albumin 1.3 G/DL (3.4-5.0); Bilirubin,Total 2.6 MG/DL (0.2-1.0); Calcium 7.5 MG/DL (8.5-10.1); Potassium 5.2 MMOL/L (3.5-5.1); Total Protein 5.5 G/DL (6.4-8.3)
[2018-11-14 07:37] LABS: Troponin I 0.187 NG/ML (0.00-0.045)
[2018-11-14] MEDS: SODIUM CHLORIDE 0.45% 1,000 ML IV SCH ×2 (08:10→22:58)
[2018-11-14] MEDS: ASCORBIC ACID 500 MG TABLET PO SCH ×2 (08:13→21:33)
[2018-11-14] MEDS: POLYETHYLENE GLYCOL POWDER 17 GM PACK PO SCH (08:13)
[2018-11-14] MEDS: hydrALAZINE 25 MG TABLET PO SCH ×4 (08:13→21:33)
[2018-11-14] MEDS: amLODIPine 2.5 MG TABLET PO SCH (08:14)
[2018-11-14 08:24] LABS: Platelet Estimate Decreased; Polychromasia Slight; Segmented Neutrophils 99 % (50-85); Total Cells Counted 100
[2018-11-14 11:05] LABS: Troponin I 0.228 NG/ML (0.00-0.045)
[2018-11-14] MEDS ORDERED: SODIUM CHLORIDE 0.9% 1,000 ML IV ONE ×2 (12:54→16:09)
[2018-11-14] MEDS: MORPHINE 4 MG/1 ML VIAL IV PRN (15:03)
[2018-11-14] MEDS ORDERED: FUROSEMIDE 40 MG/4 ML VIAL IV ONE (16:09)
[2018-11-15] MEDS: AMPICILLIN/SULBACTAM 1,500 MG in SODIUM CHLORIDE 0.9% 100 ML IV SCH ×4 (00:38→18:19)
[2018-11-15] MEDS: MORPHINE 4 MG/1 ML VIAL IV PRN ×2 (02:24→22:18)
[2018-11-15 04:34] LABS: ABG Base Excess -3.1 MMOL/L (-2.5-2.5); ABG HCO3 17.4 MMOL/L (20-26); ABG Oxygen Saturation 98.7 % (95-100); ABG PO2 254.9 MM HG (80-95)
[2018-11-15 04:36] LABS: ABG PCO2 18.4 MM HG (35-48); ABG PH 7.594 (7.35-7.45)
[2018-11-15 04:48] LABS: Basophils % 0.1 % (0.0-0.8); Hematocrit 24.6 VOL% (35.7-47.0); Hemoglobin 8.3 GM/DL (12.0-16.0); Immature Granulocytes % 1.3 %; Lymphocytes # 0.5 10*3/uL (1.4-4.0); Lymphocytes % 3.4 % (21.3-54.2); Mean Corpuscular HGB Conc 33.7 GM/DL (32-36); Mean Corpuscular Hemoglobin 31 PG (27-34); Mean Corpuscular Volume 90.4 FL (87-102); Monocytes # 0.7 10*3/uL (0.11-0.8); Monocytes % 4.5 % (1.7-12.7); NRBC # 0.02 10*3/uL; Neutrophils # 14.4 10*3/uL (1.4-7.4); Neutrophils % 90.7 % (38.7-73.9); Platelet Count 74 T/CUMM (130-400); Red Blood Count 2.72 MC/CUMM (3.8-5.5); White Blood Count 15.9 T/CUMM (4-12)
[2018-11-15 05:18] LABS: Albumin 1.2 G/DL (3.4-5.0); Bilirubin,Total 2.6 MG/DL (0.2-1.0); Osmolality,Calculated 292.1 MOS/KG (273-304); Potassium 4.7 MMOL/L (3.5-5.1); Prealbumin 4.7 MG/DL (20-40); Total Protein 5.4 G/DL (6.4-8.3)
[2018-11-15 05:31] LABS: Lymphocytes 2 % (20-55); Segmented Neutrophils 94 % (50-85); Total Cells Counted 100
[2018-11-15 05:32] LABS: Hypochromasia 1+; Microcytosis 1+
[2018-11-15 05:33] LABS: Platelet Estimate Decreased
[2018-11-15] MEDS: INSULIN REGULAR 100 UNIT/ML SUBCUT SCH ×3 (06:49→18:19)
[2018-11-15] MEDS: amLODIPine 2.5 MG TABLET PO SCH (08:57)
[2018-11-15] MEDS: hydrALAZINE 25 MG TABLET PO SCH ×4 (08:57→21:43)
[2018-11-15] MEDS: ASCORBIC ACID 500 MG TABLET PO SCH ×2 (08:57→21:43)
[2018-11-15] MEDS: PANTOPRAZOLE 40 MG VIAL IV SCH (08:57)
[2018-11-15] MEDS: POLYETHYLENE GLYCOL POWDER 17 GM PACK PO SCH (08:57)
[2018-11-15] MEDS: SODIUM CHLORIDE 0.45% 1,000 ML IV SCH (13:28)
[2018-11-15] MEDS ORDERED: METOPROLOL TARTRATE 5 MG/5 ML VIAL IV ONE ×2 (23:05)
[2018-11-16] MEDS: INSULIN REGULAR 100 UNIT/ML SUBCUT SCH ×5 (00:30→23:05)
[2018-11-16] MEDS: DEXTROSE 50% 25 GM/50 ML SYRINGE IV PRN ×3 (00:32→13:07)
[2018-11-16] MEDS: AMPICILLIN/SULBACTAM 1,500 MG in SODIUM CHLORIDE 0.9% 100 ML IV SCH ×3 (00:45→17:21)
[2018-11-16 04:29] LABS: ABG HCO3 20.3 MMOL/L (20-26); ABG PCO2 23.6 MM HG (35-48); ABG TCO2 16.3 MMOL/L (23-27)
[2018-11-16 04:37] LABS: Basophils % 0.1 % (0.0-0.8); Hematocrit 23.7 VOL% (35.7-47.0); Hemoglobin 7.8 GM/DL (12.0-16.0); Immature Granulocytes % 0.9 %; Immature Granulocytes Absolute 0.13 #; Lymphocytes # 0.5 10*3/uL (1.4-4.0); Lymphocytes % 3.8 % (21.3-54.2); Mean Corpuscular HGB Conc 32.9 GM/DL (32-36); Mean Corpuscular Hemoglobin 30 PG (27-34); Mean Corpuscular Volume 91.2 FL (87-102); Mean Platelet Volume 12.1 FL (9.6-12.0); Monocytes # 0.8 10*3/uL (0.11-0.8); Monocytes % 5.6 % (1.7-12.7); NRBC # 0.02 10*3/uL; Neutrophils # 12.6 10*3/uL (1.4-7.4); Neutrophils % 89.6 % (38.7-73.9); Platelet Count 115 T/CUMM (130-400)
[2018-11-16] MEDS: SODIUM CHLORIDE 0.45% 1,000 ML IV SCH ×3 (04:48→16:53)
[2018-11-16 04:57] LABS: Albumin 1.3 G/DL (3.4-5.0); Band Neutrophils 1 % (0-10); Bilirubin,Total 2.8 MG/DL (0.2-1.0); Calcium 7.1 MG/DL (8.5-10.1); Hypochromasia 1+; Lymphocytes 4 % (20-55); Osmolality,Calculated 289.5 MOS/KG (273-304); Platelet Estimate Decreased; Potassium 5.2 MMOL/L (3.5-5.1); Prealbumin 5.9 MG/DL (20-40); Segmented Neutrophils 89 % (50-85); Total Cells Counted 100; Total Protein 5.7 G/DL (6.4-8.3)
[2018-11-16 04:58] LABS: Microcytosis 1+
[2018-11-16] MEDS: ASCORBIC ACID 500 MG TABLET PO SCH ×2 (09:31→21:22)
[2018-11-16] MEDS: amLODIPine 2.5 MG TABLET PO SCH (09:31)
[2018-11-16] MEDS: PANTOPRAZOLE 40 MG VIAL IV SCH (09:31)
[2018-11-16] MEDS: hydrALAZINE 25 MG TABLET PO SCH ×4 (09:31→21:22)
[2018-11-16] MEDS: POLYETHYLENE GLYCOL POWDER 17 GM PACK PO SCH (09:32)
[2018-11-16] MEDS ORDERED: PERMETHRIN 1% LOTION 59 ML BOTTLE TOP ONE (11:07)
[2018-11-16] MEDS: DEXTROSE 5% NACL 0.45% 1,000 ML IV SCH (15:45)
[2018-11-17] MEDS: DEXTROSE 5% NACL 0.45% 1,000 ML IV SCH ×2 (05:00→19:29)
[2018-11-17 05:24] LABS: ABG Base Excess -4.4 MMOL/L (-2.5-2.5); ABG HCO3 20.7 MMOL/L (20-26); ABG Oxygen Saturation 99.5 % (95-100); ABG PCO2 22.9 MM HG (35-48); ABG PH 7.499 (7.35-7.45); ABG TCO2 16.6 MMOL/L (23-27)
[2018-11-17 05:37] LABS: Basophils % 0.1 % (0.0-0.8); Eosinophils % 0.3 % (0.00-10.9); Hematocrit 20.8 VOL% (35.7-47.0); Hemoglobin 6.8 GM/DL (12.0-16.0); Immature Granulocytes % 0.9 %; Immature Granulocytes Absolute 0.09 #; Lymphocytes # 0.5 10*3/uL (1.4-4.0); Lymphocytes % 4.7 % (21.3-54.2); Mean Corpuscular HGB Conc 32.7 GM/DL (32-36); Mean Corpuscular Hemoglobin 31 PG (27-34); Mean Corpuscular Volume 93.7 FL (87-102); Mean Platelet Volume 11.7 FL (9.6-12.0); Monocytes # 0.7 10*3/uL (0.11-0.8); Monocytes % 6.8 % (1.7-12.7); Neutrophils # 8.6 10*3/uL (1.4-7.4); Neutrophils % 87.2 % (38.7-73.9); Platelet Count 96 T/CUMM (130-400); Red Blood Count 2.22 MC/CUMM (3.8-5.5); Red Cell Distribution Width 17.2 % (9.3-17.3); White Blood Count 9.9 T/CUMM (4-12)
[2018-11-17] MEDS ORDERED: ACETAMINOPHEN 650 MG SUPP RECTAL PRN (05:37)
[2018-11-17] MEDS: INSULIN REGULAR 100 UNIT/ML SUBCUT SCH ×3 (05:50→18:08)
[2018-11-17 06:03] LABS: Band Neutrophils 2 % (0-10); Hypochromasia 1+; Lymphocytes 5 % (20-55); Segmented Neutrophils 89 % (50-85); Total Cells Counted 100
[2018-11-17 06:04] LABS: Microcytosis 1+; Platelet Estimate Decreased
[2018-11-17 06:05] LABS: Albumin 1.2 G/DL (3.4-5.0); Bilirubin,Total 3.7 MG/DL (0.2-1.0); Osmolality,Calculated 292.4 MOS/KG (273-304); Potassium 5.1 MMOL/L (3.5-5.1); Prealbumin 5.8 MG/DL (20-40); Total Protein 5.4 G/DL (6.4-8.3)
[2018-11-17] MEDS: AMPICILLIN/SULBACTAM 1,500 MG in SODIUM CHLORIDE 0.9% 100 ML IV SCH ×2 (06:18→18:30)
[2018-11-17] MEDS: ASCORBIC ACID 500 MG TABLET PO SCH ×2 (09:11→22:30)
[2018-11-17] MEDS: POLYETHYLENE GLYCOL POWDER 17 GM PACK PO SCH (09:12)
[2018-11-17] MEDS: hydrALAZINE 25 MG TABLET PO SCH ×4 (09:12→22:30)
[2018-11-17] MEDS: amLODIPine 2.5 MG TABLET PO SCH (09:12)
[2018-11-17] MEDS: PANTOPRAZOLE 40 MG VIAL IV SCH (09:14)
[2018-11-17] MEDS: MORPHINE 4 MG/1 ML VIAL IV PRN (21:00)
[2018-11-18] MEDS: INSULIN REGULAR 100 UNIT/ML SUBCUT SCH ×4 (00:24→17:08)
[2018-11-18] MEDS: MORPHINE 4 MG/1 ML VIAL IV PRN ×3 (00:27→19:30)
[2018-11-18 04:41] LABS: ABG Base Excess -6.2 MMOL/L (-2.5-2.5); ABG HCO3 19.3 MMOL/L (20-26); ABG Oxygen Saturation 98.9 % (95-100); ABG PCO2 25.1 MM HG (35-48)
[2018-11-18 05:09] LABS: Basophils % 0.1 % (0.0-0.8); Eosinophils # 0.1 10*3/uL (0.0-0.87); Eosinophils % 0.5 % (0.00-10.9); Hematocrit 21.7 VOL% (35.7-47.0); Hemoglobin 7.2 GM/DL (12.0-16.0); Immature Granulocytes % 0.9 %; Lymphocytes # 0.3 10*3/uL (1.4-4.0); Lymphocytes % 2.8 % (21.3-54.2); Mean Corpuscular HGB Conc 33.2 GM/DL (32-36); Mean Corpuscular Hemoglobin 31 PG (27-34); Mean Corpuscular Volume 93.9 FL (87-102); Mean Platelet Volume 11.9 FL (9.6-12.0); Monocytes # 0.6 10*3/uL (0.11-0.8); Monocytes % 5.9 % (1.7-12.7); Neutrophils # 9.5 10*3/uL (1.4-7.4); Neutrophils % 89.8 % (38.7-73.9); Platelet Count 101 T/CUMM (130-400); Red Blood Count 2.31 MC/CUMM (3.8-5.5); Red Cell Distribution Width 17.7 % (9.3-17.3); White Blood Count 10.5 T/CUMM (4-12)
[2018-11-18 05:23] LABS: Band Neutrophils 1 % (0-10); Hypochromasia 1+; Lymphocytes 1 % (20-55); Ovalocytes Slight; Platelet Estimate Decreased; Segmented Neutrophils 92 % (50-85); Total Cells Counted 100
[2018-11-18 05:24] LABS: Microcytosis 1+
[2018-11-18 05:30] LABS: Albumin 1.2 G/DL (3.4-5.0); Bilirubin,Total 3.2 MG/DL (0.2-1.0); Calcium 6.9 MG/DL (8.5-10.1); Osmolality,Calculated 289.7 MOS/KG (273-304); Total Protein 5.6 G/DL (6.4-8.3)
[2018-11-18] MEDS: AMPICILLIN/SULBACTAM 1,500 MG in SODIUM CHLORIDE 0.9% 100 ML IV SCH ×2 (05:49→17:00)
[2018-11-18] MEDS: PANTOPRAZOLE 40 MG VIAL IV SCH (09:00)
[2018-11-18] MEDS: POLYETHYLENE GLYCOL POWDER 17 GM PACK PO SCH (09:00)
[2018-11-18] MEDS: ASCORBIC ACID 500 MG TABLET PO SCH ×2 (09:00→21:39)
[2018-11-18] MEDS: hydrALAZINE 25 MG TABLET PO SCH ×4 (09:00→21:39)
[2018-11-18] MEDS: amLODIPine 2.5 MG TABLET PO SCH (09:05)
[2018-11-18] MEDS: DEXTROSE 5% NACL 0.45% 1,000 ML IV SCH (11:44)
[2018-11-18 18:05] VITALS: BP 138/40
[2018-11-19] MEDS: MORPHINE 4 MG/1 ML VIAL IV PRN (00:02)
[2018-11-19] MEDS: INSULIN REGULAR 100 UNIT/ML SUBCUT SCH ×3 (00:24→11:33)
[2018-11-19] MEDS: DEXTROSE 5% NACL 0.45% 1,000 ML IV SCH ×2 (01:44→15:59)
[2018-11-19] MEDS: AMPICILLIN/SULBACTAM 1,500 MG in SODIUM CHLORIDE 0.9% 100 ML IV SCH (06:07)
[2018-11-19] MEDS: ASCORBIC ACID 500 MG TABLET PO SCH (08:38)
[2018-11-19] MEDS: amLODIPine 2.5 MG TABLET PO SCH (08:38)
[2018-11-19] MEDS: PANTOPRAZOLE 40 MG VIAL IV SCH (08:39)
[2018-11-19] MEDS: hydrALAZINE 25 MG TABLET PO SCH ×2 (08:43→12:43)
[2018-11-19] MEDS: POLYETHYLENE GLYCOL POWDER 17 GM PACK PO SCH (08:43)
[2018-11-20] MEDS ORDERED: AMPICILLIN/SULBACTAM 1,500 MG in SODIUM CHLORIDE 0.9% 100 ML IV SCH (06:00)
== END 2018-11-19 17:46 | disposition expired | DRG 754 ==
LOC: EDUNIT# → EDBD → N.ED 12:08 → SUATTDRO 14:08 → N.EDINP 14:08 → N.5E 16:07 → N.ICU 11-05 17:51 → N.3E 11-12 18:07 → N.ICU 11-14 03:27
PROVIDERS: ADMIT Internal Medicine; ATTEND Internal Medicine